=== PATIENT | male | born 1945 | race African-American/Black ===

== ENCOUNTER 2017-05-31 20:28 | Inpatient (IN) | payer MEDICARE, MEDICAID ==
[~2017-05-31] VITALS: Ht 172.7 cm; Wt 64.9 kg
[2017-05-31] MEDS ORDERED: TEMA15CA5 PO (21:12)
[2017-05-31] MEDS ORDERED: INSU100V10 SQ (21:12)
[2017-05-31] MEDS ORDERED: HYDR20VI6 IV (21:12)
[2017-05-31] MEDS ORDERED: RISP0.5T5 PO ×2 (21:12)
[2017-05-31] MEDS ORDERED: CLON0.1T14 PO (21:12)
[2017-05-31] MEDS ORDERED: ASPI81TA31 PO (21:12)
[2017-05-31] MEDS ORDERED: BLOO-360 IN (21:12)
[2017-05-31] MEDS ORDERED: LORA-258 PO (21:12)
[2017-05-31] MEDS ORDERED: ONDA4VIA30 IV (21:12)
[2017-05-31] MEDS ORDERED: ACET325T53 PO (21:12)
[2017-05-31] MEDS ORDERED: FAMO-132 PO (21:12)
[2017-05-31] MEDS ORDERED: DEXT50DI8 IV (21:12)
[2017-05-31] MEDS ORDERED: HYDR-3326 PO (21:12)
[2017-05-31 22:15] LABS: BASOPHILS % (AUTO) 0.5 % (0.0-2.0); EOSINOPHILS % (AUTO) 0.4 % (0.0-7.0); HEMATOCRIT 37.1 % (36.7-47.1); HEMOGLOBIN 12.4 g/dL (12.5-16.3); LYMPHOCYTES # (AUTO) 2.6 K/uL (20.0-40.0); MEAN CORPUSCULAR HEMOGLOBIN 32.2 uug (23.8-33.4); MEAN CORPUSCULAR HGB CONC 34 g/dL (32.5-36.3); MEAN CORPUSCULAR VOLUME 96.2 fL (73.0-96.2); MONOCYTES # (AUTO) 0.6 K/uL (2.0-10.0); MONOCYTES % (AUTO) 13.7 % (0.0-11.0); NEUTROPHILS # (AUTO) 1.4 K/uL (1.8-8.9); NEUTROPHILS % (AUTO) 29.4 % (38.5-71.5); PLATELET COUNT (AUTO) 93 K/uL (152-348); RED BLOOD CELL COUNT(AUTO) 3.85 MIL/uL (4.06-5.63); WHITE BLOOD COUNT (AUTO) 4.7 K/uL (3.6-10.2)
[2017-05-31 22:21] LABS: ALANINE AMINOTRANSFERASE 117 U/L (16-63); ALKALINE PHOSPHATASE 82 U/L (50-136); ASPARTATE AMINOTRANSFERASE 91 U/L (15-37); BILIRUBIN,DIRECT 0.3 mg/dL (0.0-0.2); BILIRUBIN,TOTAL 0.5 mg/dL (0.2-1.0); CARBON DIOXIDE 34 mmol/L (21-32); CHLORIDE 100 mmol/L (98-107); CREATININE 1.2 mg/dL (0.6-1.3); POTASSIUM 4.6 mmol/L (3.5-5.1); TOTAL PROTEIN, SERUM 7.5 g/dL (6.4-8.2); UREA NITROGEN, BLOOD 25 mg/dL (7-18)
[2017-05-31 22:24] LABS: ETHANOL < 3 MG/DL (0-0)
[2017-05-31 22:31] LABS: GLUCOSE 311 mg/dL (74-106)
[2017-05-31 22:55] LABS: LYMPHOCYTES % (MANUAL) 59 % (20-40); MONOCYTES % (MANUAL) 13 % (2-10); NEUTROPHILS % (MANUAL) 28 % (42-75)
[2017-05-31 22:56] LABS: THYROID STIMULATING HORMONE 1.177 mIU/mL (0.358-3.740)
[2017-05-31 23:40] VITALS: BP 159/96
[2017-06-01] MEDS ORDERED: CLONIDINE HCL 0.1 MG TABLET PO PRN
[2017-06-01] MEDS ORDERED: MAG HYDROX/AL HYDROX/SIMETH 30 ML LIQUID UDC PO PRN (00:30)
[2017-06-01] MEDS ORDERED: MAGNESIUM HYDROXIDE 30 ML LIQUID UDC PO PRN (00:30)
[2017-06-01 07:30] VITALS: BP 145/81
[2017-06-01] MEDS: FAMOTIDINE 20 MG TABLET PO SCH ×2 (08:21→17:02)
[2017-06-01] MEDS: NICOTINE 7 MG/24HR PATCH TD SCH (08:21)
[2017-06-01] MEDS: CLONAZEPAM 0.5 MG TABLET PO PRN (10:50)
[2017-06-01] MEDS: ASPIRIN 81 MG TAB.CHEW PO SCH (12:01)
[2017-06-01] MEDS: BENAZEPRIL HCL 5 MG TABLET PO SCH (13:05)
[2017-06-01] MEDS: glipiZIDE 5 MG TABLET PO SCH ×2 (13:05→17:02)
[2017-06-01] MEDS: METFORMIN HCL 500 MG TABLET PO SCH ×2 (13:05→17:03)
[2017-06-01 16:40] VITALS: BP 137/77
[2017-06-01] MEDS: BENZTROPINE MESYLATE 0.5 MG TABLET PO SCH (17:02)
[2017-06-01] MEDS: risperiDONE 0.5 MG TABLET PO SCH (17:02)
[2017-06-01 21:15] VITALS: BP 93/50
[2017-06-02] MEDS: TEMAZEPAM 7.5 MG CAPSULE PO PRN (01:31)
[2017-06-02] MEDS: ACETAMINOPHEN 325 MG TABLET PO PRN (01:32)
[2017-06-02 07:30] VITALS: BP 126/72
[2017-06-02] MEDS: METFORMIN HCL 500 MG TABLET PO SCH ×2 (08:41→17:04)
[2017-06-02] MEDS: BENZTROPINE MESYLATE 0.5 MG TABLET PO SCH ×2 (08:41→17:04)
[2017-06-02] MEDS: glipiZIDE 5 MG TABLET PO SCH ×2 (08:41→17:04)
[2017-06-02] MEDS: risperiDONE 0.5 MG TABLET PO SCH ×2 (08:41→17:04)
[2017-06-02] MEDS: FAMOTIDINE 20 MG TABLET PO SCH ×2 (08:41→17:04)
[2017-06-02] MEDS: NICOTINE 7 MG/24HR PATCH TD SCH (08:41)
[2017-06-02] MEDS: BENAZEPRIL HCL 5 MG TABLET PO SCH (08:42)
[2017-06-02] MEDS: ASPIRIN 81 MG TAB.CHEW PO SCH (08:42)
[2017-06-02 16:00] VITALS: BP 114/68
[2017-06-02 20:00] VITALS: BP 107/63
[2017-06-02] MEDS: CLONAZEPAM 0.5 MG TABLET PO PRN (23:35)
[2017-06-03] MEDS ORDERED: LORAZEPAM 2 MG/1 ML VIAL IM STA (00:44)
[2017-06-03] MEDS ORDERED: diphenhydrAMINE 50 MG/1 ML VIAL IM STA (00:44)
[2017-06-03] MEDS ORDERED: HALOPERIDOL LACTATE 5 MG/1 ML VIAL IM STA (00:44)
[2017-06-03] MEDS ORDERED: diphenhydrAMINE 50 MG/1 ML VIAL ONE (00:48)
[2017-06-03 07:30] VITALS: BP 127/72
[2017-06-03] MEDS: METFORMIN HCL 500 MG TABLET PO SCH ×2 (08:42→18:02)
[2017-06-03] MEDS: FAMOTIDINE 20 MG TABLET PO SCH ×2 (08:42→16:47)
[2017-06-03] MEDS: BENZTROPINE MESYLATE 0.5 MG TABLET PO SCH ×2 (08:42→16:47)
[2017-06-03] MEDS: ASPIRIN 81 MG TAB.CHEW PO SCH (08:42)
[2017-06-03] MEDS: risperiDONE 0.5 MG TABLET PO SCH ×2 (08:42→16:47)
[2017-06-03] MEDS: BENAZEPRIL HCL 5 MG TABLET PO SCH (08:43)
[2017-06-03] MEDS: glipiZIDE 5 MG TABLET PO SCH ×2 (08:47→16:46)
[2017-06-03] MEDS: NICOTINE 14 MG/24HR PATCH TD SCH (08:48)
[2017-06-03] MEDS ORDERED: NICOTINE 7 MG/24HR PATCH TD SCH (09:00)
[2017-06-03 15:55] VITALS: BP 94/57
[2017-06-03 19:47] VITALS: BP 97/62
[2017-06-03] MEDS: CLONAZEPAM 0.5 MG TABLET PO PRN (20:02)
[2017-06-03 20:04] VITALS: BP 110/64
[2017-06-03] MEDS ORDERED: DEXTROSE 50% 50 ML DISP.SYRIN IV PRN (23:00)
[2017-06-03] MEDS: BLOOD SUGAR DIAGNOSTIC 1 EACH STRIP VI SCH (23:00)
[2017-06-04] MEDS: TEMAZEPAM 7.5 MG CAPSULE PO PRN (00:45)
[2017-06-04] MEDS: BLOOD SUGAR DIAGNOSTIC 1 EACH STRIP VI SCH ×4 (06:31→20:23)
[2017-06-04 07:30] VITALS: BP 128/67
[2017-06-04] MEDS: NICOTINE 14 MG/24HR PATCH TD SCH ×2 (07:45→09:49)
[2017-06-04] MEDS: CLONAZEPAM 0.5 MG TABLET PO PRN ×2 (09:44→20:48)
[2017-06-04] MEDS: BENZTROPINE MESYLATE 0.5 MG TABLET PO SCH ×2 (09:44→17:24)
[2017-06-04] MEDS: METFORMIN HCL 500 MG TABLET PO SCH ×2 (09:44→17:25)
[2017-06-04] MEDS: risperiDONE 0.5 MG TABLET PO SCH ×2 (09:44→17:24)
[2017-06-04] MEDS: FAMOTIDINE 20 MG TABLET PO SCH ×2 (09:44→17:24)
[2017-06-04] MEDS: BENAZEPRIL HCL 5 MG TABLET PO SCH (09:44)
[2017-06-04] MEDS: glipiZIDE 5 MG TABLET PO SCH ×2 (09:44→16:30)
[2017-06-04] MEDS: ASPIRIN 81 MG TAB.CHEW PO SCH (09:45)
[2017-06-04] MEDS: INSULIN REGULAR, HUMAN 300 UNIT/3 ML VIAL SQ PRN ×3 (10:26→20:42)
[2017-06-04 15:43] VITALS: BP 115/76
[2017-06-04 20:27] VITALS: BP 107/67
[2017-06-05] MEDS: CLONAZEPAM 0.5 MG TABLET PO PRN (03:13)
[2017-06-05] MEDS: BLOOD SUGAR DIAGNOSTIC 1 EACH STRIP VI SCH ×4 (06:41→20:42)
[2017-06-05 07:30] VITALS: BP 132/75
[2017-06-05] MEDS: METFORMIN HCL 500 MG TABLET PO SCH ×2 (09:14→17:22)
[2017-06-05] MEDS: risperiDONE 0.5 MG TABLET PO SCH ×3 (09:14→17:22)
[2017-06-05] MEDS: glipiZIDE 5 MG TABLET PO SCH ×2 (09:14→17:22)
[2017-06-05] MEDS: ASPIRIN 81 MG TAB.CHEW PO SCH (09:14)
[2017-06-05] MEDS: NICOTINE 14 MG/24HR PATCH TD SCH (09:14)
[2017-06-05] MEDS: BENZTROPINE MESYLATE 0.5 MG TABLET PO SCH ×2 (09:14→17:22)
[2017-06-05] MEDS: BENAZEPRIL HCL 5 MG TABLET PO SCH (09:14)
[2017-06-05] MEDS: FAMOTIDINE 20 MG TABLET PO SCH ×2 (09:14→17:22)
[2017-06-05 15:15] VITALS: BP 108/66
[2017-06-05] MEDS: INSULIN REGULAR, HUMAN 300 UNIT/3 ML VIAL SQ PRN ×2 (17:24→22:12)
[2017-06-05 19:55] VITALS: BP 113/68
[2017-06-06] MEDS: INSULIN REGULAR, HUMAN 300 UNIT/3 ML VIAL SQ PRN ×4 (00:08→21:11)
[2017-06-06] MEDS: HYDROCODONE/APAP 5-325MG TABLET PO PRN (04:05)
[2017-06-06] MEDS: BLOOD SUGAR DIAGNOSTIC 1 EACH STRIP VI SCH ×4 (06:57→21:04)
[2017-06-06 07:30] VITALS: BP 90/56
[2017-06-06] MEDS: METFORMIN HCL 500 MG TABLET PO SCH ×2 (08:58→17:05)
[2017-06-06] MEDS: NICOTINE 14 MG/24HR PATCH TD SCH (08:58)
[2017-06-06] MEDS: BENZTROPINE MESYLATE 0.5 MG TABLET PO SCH ×2 (08:58→17:05)
[2017-06-06] MEDS: ASPIRIN 81 MG TAB.CHEW PO SCH (08:58)
[2017-06-06] MEDS: FAMOTIDINE 20 MG TABLET PO SCH ×2 (08:58→17:05)
[2017-06-06] MEDS: glipiZIDE 5 MG TABLET PO SCH ×2 (08:58→17:05)
[2017-06-06] MEDS: risperiDONE 0.5 MG TABLET PO SCH ×2 (08:58→13:24)
[2017-06-06] MEDS: BENAZEPRIL HCL 5 MG TABLET PO SCH (09:00)
[2017-06-06 16:23] VITALS: BP 106/67
[2017-06-06] MEDS ORDERED: risperiDONE 0.5 MG TABLET PO SCH (17:00)
[2017-06-06] MEDS: risperiDONE 1 MG TABLET PO SCH (17:05)
[2017-06-06 20:09] VITALS: BP 124/66
[2017-06-07 07:30] VITALS: BP 134/71
[2017-06-07] MEDS: BLOOD SUGAR DIAGNOSTIC 1 EACH STRIP VI SCH ×4 (07:45→20:10)
[2017-06-07] MEDS: glipiZIDE 5 MG TABLET PO SCH ×2 (08:14→17:43)
[2017-06-07] MEDS: risperiDONE 1 MG TABLET PO SCH ×2 (08:15→17:43)
[2017-06-07] MEDS: BENZTROPINE MESYLATE 0.5 MG TABLET PO SCH ×2 (08:15→17:43)
[2017-06-07] MEDS: ASPIRIN 81 MG TAB.CHEW PO SCH (08:15)
[2017-06-07] MEDS: BENAZEPRIL HCL 5 MG TABLET PO SCH (08:15)
[2017-06-07] MEDS: FAMOTIDINE 20 MG TABLET PO SCH ×2 (08:15→17:43)
[2017-06-07] MEDS: METFORMIN HCL 500 MG TABLET PO SCH ×2 (08:15→17:43)
[2017-06-07] MEDS: NICOTINE 14 MG/24HR PATCH TD SCH (08:18)
[2017-06-07] MEDS: INSULIN REGULAR, HUMAN 300 UNIT/3 ML VIAL SQ PRN ×3 (12:06→23:35)
[2017-06-07 16:31] VITALS: BP 125/69
[2017-06-07] MEDS: HYDROCODONE/APAP 5-325MG TABLET PO PRN (20:06)
[2017-06-07 20:12] VITALS: BP 141/77
[2017-06-08] MEDS: CLONAZEPAM 0.5 MG TABLET PO PRN (03:00)
[2017-06-08] MEDS: BLOOD SUGAR DIAGNOSTIC 1 EACH STRIP VI SCH ×4 (06:21→20:52)
[2017-06-08 07:30] VITALS: BP 123/87
[2017-06-08] MEDS: METFORMIN HCL 500 MG TABLET PO SCH ×2 (09:17→18:21)
[2017-06-08] MEDS: NICOTINE 14 MG/24HR PATCH TD SCH (09:17)
[2017-06-08] MEDS: glipiZIDE 5 MG TABLET PO SCH ×2 (09:17→18:21)
[2017-06-08] MEDS: INSULIN REGULAR, HUMAN 300 UNIT/3 ML VIAL SQ PRN ×3 (09:20→18:18)
[2017-06-08] MEDS: FAMOTIDINE 20 MG TABLET PO SCH ×2 (09:25→18:21)
[2017-06-08] MEDS: ASPIRIN 81 MG TAB.CHEW PO SCH (09:25)
[2017-06-08] MEDS: risperiDONE 1 MG TABLET PO SCH ×2 (09:25→18:21)
[2017-06-08] MEDS: BENAZEPRIL HCL 5 MG TABLET PO SCH (09:26)
[2017-06-08] MEDS: BENZTROPINE MESYLATE 0.5 MG TABLET PO SCH ×2 (09:26→18:21)
[2017-06-08] MEDS: HYDROCODONE/APAP 5-325MG TABLET PO PRN (15:02)
[2017-06-08 17:44] VITALS: BP 97/55
[2017-06-08 19:49] VITALS: BP 103/53
[2017-06-09 07:30] VITALS: BP 159/88
[2017-06-09] MEDS: BLOOD SUGAR DIAGNOSTIC 1 EACH STRIP VI SCH ×4 (07:34→20:33)
[2017-06-09] MEDS: NICOTINE 14 MG/24HR PATCH TD SCH (08:05)
[2017-06-09] MEDS: METFORMIN HCL 500 MG TABLET PO SCH ×2 (08:06→17:05)
[2017-06-09] MEDS: ASPIRIN 81 MG TAB.CHEW PO SCH (08:06)
[2017-06-09] MEDS: BENZTROPINE MESYLATE 0.5 MG TABLET PO SCH ×2 (08:06→17:05)
[2017-06-09] MEDS: BENAZEPRIL HCL 5 MG TABLET PO SCH (08:06)
[2017-06-09] MEDS: risperiDONE 1 MG TABLET PO SCH ×2 (08:06→17:05)
[2017-06-09] MEDS: glipiZIDE 5 MG TABLET PO SCH ×2 (08:06→17:05)
[2017-06-09] MEDS: FAMOTIDINE 20 MG TABLET PO SCH ×2 (09:51→17:05)
[2017-06-09 11:07] LABS: BASOPHILS % (AUTO) 0.4 % (0.0-2.0); EOSINOPHILS % (AUTO) 0.3 % (0.0-7.0); HEMATOCRIT 36.7 % (36.7-47.1); HEMOGLOBIN 12.5 g/dL (12.5-16.3); LYMPHOCYTES # (AUTO) 1.5 K/uL (20.0-40.0); LYMPHOCYTES % (AUTO) 48.1 % (20.5-51.5); MEAN CORPUSCULAR HGB CONC 34 g/dL (32.5-36.3); MEAN CORPUSCULAR VOLUME 94.2 fL (73.0-96.2); MONOCYTES # (AUTO) 0.5 K/uL (2.0-10.0); MONOCYTES % (AUTO) 14.7 % (0.0-11.0); NEUTROPHILS # (AUTO) 1.1 K/uL (1.8-8.9); NEUTROPHILS % (AUTO) 36.5 % (38.5-71.5); PLATELET COUNT (AUTO) 82 K/uL (152-348)
[2017-06-09 11:22] LABS: WHITE BLOOD COUNT (AUTO) 3.1 K/uL (3.6-10.2)
[2017-06-09 11:38] LABS: BILIRUBIN,TOTAL 0.6 mg/dL (0.2-1.0); CREATININE 0.9 mg/dL (0.6-1.3); MAGNESIUM 1.6 mg/dL (1.8-2.4); POTASSIUM 4.3 mmol/L (3.5-5.1); TOTAL PROTEIN, SERUM 7.5 g/dL (6.4-8.2)
[2017-06-09 12:36] LABS: LYMPHOCYTES % (MANUAL) 52 % (20-40); MONOCYTES % (MANUAL) 16 % (2-10); NEUTROPHILS % (MANUAL) 31 % (42-75)
[2017-06-09 12:48] LABS: REACTIVE LYMPHOCYTES 1 % (0-0)
[2017-06-09 16:15] VITALS: BP 112/61
[2017-06-09] MEDS: INSULIN REGULAR, HUMAN 300 UNIT/3 ML VIAL SQ PRN ×2 (16:41→20:50)
[2017-06-09 19:53] VITALS: BP 128/67
[2017-06-10 07:30] VITALS: BP 133/82
[2017-06-10] MEDS: NICOTINE 14 MG/24HR PATCH TD SCH (08:15)
[2017-06-10] MEDS: FAMOTIDINE 20 MG TABLET PO SCH ×2 (08:15→16:21)
[2017-06-10] MEDS: METFORMIN HCL 500 MG TABLET PO SCH ×2 (08:16→17:03)
[2017-06-10] MEDS: risperiDONE 1 MG TABLET PO SCH ×2 (08:16→16:21)
[2017-06-10] MEDS: BENZTROPINE MESYLATE 0.5 MG TABLET PO SCH ×2 (08:16→16:20)
[2017-06-10] MEDS: glipiZIDE 5 MG TABLET PO SCH ×2 (08:16→16:20)
[2017-06-10] MEDS: BENAZEPRIL HCL 5 MG TABLET PO SCH (08:16)
[2017-06-10] MEDS: ASPIRIN 81 MG TAB.CHEW PO SCH (08:16)
[2017-06-10] MEDS: BLOOD SUGAR DIAGNOSTIC 1 EACH STRIP VI SCH ×4 (08:22→20:46)
[2017-06-10] MEDS: INSULIN REGULAR, HUMAN 300 UNIT/3 ML VIAL SQ PRN ×2 (11:30→16:22)
[2017-06-10 15:58] VITALS: BP 132/66
[2017-06-10 20:00] VITALS: BP 128/84
[2017-06-11] MEDS: TEMAZEPAM 7.5 MG CAPSULE PO PRN (01:57)
[2017-06-11] MEDS: BLOOD SUGAR DIAGNOSTIC 1 EACH STRIP VI SCH ×4 (07:27→21:41)
[2017-06-11 07:30] VITALS: BP 127/70
[2017-06-11] MEDS: NICOTINE 14 MG/24HR PATCH TD SCH (08:24)
[2017-06-11] MEDS: FAMOTIDINE 20 MG TABLET PO SCH ×2 (08:25→16:32)
[2017-06-11] MEDS: risperiDONE 1 MG TABLET PO SCH ×2 (08:25→16:32)
[2017-06-11] MEDS: METFORMIN HCL 500 MG TABLET PO SCH ×2 (08:25→16:32)
[2017-06-11] MEDS: BENAZEPRIL HCL 5 MG TABLET PO SCH (08:25)
[2017-06-11] MEDS: ASPIRIN 81 MG TAB.CHEW PO SCH (08:26)
[2017-06-11] MEDS: CHOLECALCIFEROL 400 UNITS TABLET PO SCH (08:26)
[2017-06-11] MEDS: BENZTROPINE MESYLATE 0.5 MG TABLET PO SCH ×2 (08:26→17:02)
[2017-06-11] MEDS: glipiZIDE 5 MG TABLET PO SCH ×2 (08:26→16:32)
[2017-06-11] MEDS ORDERED: MAGNESIUM OXIDE 400 MG TABLET PO ONE (09:00)
[2017-06-11 15:33] VITALS: BP 143/83
[2017-06-11] MEDS: INSULIN REGULAR, HUMAN 300 UNIT/3 ML VIAL SQ PRN (16:36)
[2017-06-11 20:29] VITALS: BP 134/72
[2017-06-12] MEDS: glipiZIDE 5 MG TABLET PO SCH (07:30)
[2017-06-12] MEDS: BLOOD SUGAR DIAGNOSTIC 1 EACH STRIP VI SCH ×2 (07:36→11:07)
[2017-06-12] MEDS: NICOTINE 14 MG/24HR PATCH TD SCH (07:42)
[2017-06-12 08:00] VITALS: BP 130/79
[2017-06-12] MEDS: METFORMIN HCL 500 MG TABLET PO SCH (08:00)
[2017-06-12] MEDS: CHOLECALCIFEROL 400 UNITS TABLET PO SCH (09:14)
[2017-06-12 09:15] VITALS: BP 134/72
[2017-06-12] MEDS: FAMOTIDINE 20 MG TABLET PO SCH (09:15)
[2017-06-12] MEDS: BENZTROPINE MESYLATE 0.5 MG TABLET PO SCH (09:15)
[2017-06-12] MEDS: risperiDONE 1 MG TABLET PO SCH (09:15)
[2017-06-12] MEDS: BENAZEPRIL HCL 5 MG TABLET PO SCH (09:15)
[2017-06-12 14:05] LABS: *BILIRUBIN,URIN NEGATIVE (NEGATIVE); *BLOOD, URINE NEGATIVE (NEGATIVE); *CLARITY,URINE CLEAR (CLEAR); *COLOR,URINE YELLOW (YELLOW); *KETONES,URINE NEGATIVE (NEGATIVE); *PROTEIN,URINE TRACE (NEGATIVE); LEUKOCYTE ESTERASE ,URINE TRACE (NEGATIVE); NITRITE, URINE NEGATIVE (NEGATIVE); UGLUCOSE NEGATIVE (NEGATIVE)
[2017-06-12 14:06] LABS: BACTERIA,URINE NONE SEEN /HPF (NONE SEEN); SQUAMOUS EPITHELIAL CELL,UR FEW /HPF (NONE SEEN)
[2017-06-12] MEDS: ACETAMINOPHEN 325 MG TABLET PO PRN (14:45)
[2017-06-13 08:06] LABS: *IMMUNOGLOBULIN G, SERUM 1444 mg/dL (700-1600); IMMUNOGLOBULIN A, SERUM 1316 mg/dL (61-437); IMMUNOGLOBULIN M, SERUM 29 mg/dL (20-172)
[2017-06-13 14:07] LABS: A/G RATIO 0.8 (0.7-1.7); ALBUMIN 3.6 g/dL (2.9-4.4); ALPHA-1-GLOBULIN 0.2 g/dL (0.0-0.4); ALPHA-2-GLOBULIN 0.8 g/dL (0.4-1.0); BETA GLOBULIN 1.4 g/dL (0.7-1.3); GAMMA GLOBULIN 1.8 g/dL (0.4-1.8); GLOBULIN, TOTAL 4.3 g/dL (2.2-3.9); M-SPIKE Not Observed g/dL (Not Observed)
[2017-06-15 13:06] LABS: *HCV QUANT 2256050 IU/mL (.)
== END 2017-06-12 15:45 | DRG 885 ==
LOC: ER 20:33 → GPS 23:18
PROVIDERS: ADMIT Psychiatry & Neurology Psychiatry; ATTEND Internal Medicine
DX: F23 Brief psychotic disorder (principal); E43 Unspecified severe protein-calorie malnutrition; N17.0 Acute kidney failure with tubular necrosis; B19.20 Unspecified viral hepatitis C without hepatic coma; E11.65 Type 2 diabetes mellitus with hyperglycemia; D61.818 Other pancytopenia; Z59.0 Homelessness; Z79.4 Long term (current) use of insulin; K21.9 Gastro-esophageal reflux disease without esophagitis; Z68.21 Body mass index [BMI] 21.0-21.9, adult; E55.9 Vitamin D deficiency, unspecified; E83.42 Hypomagnesemia; Z91.14 Patient's other noncompliance with medication regimen; Z86.59 Personal history of other mental and behavioral disorders; I10 Essential (primary) hypertension; Z86.19 Personal history of other infectious and parasitic diseases; Z79.82 Long term (current) use of aspirin; Z79.899 Other long term (current) drug therapy
CPT/HCPCS: 36415; 71045; 71250; 76705; 82306; 82746; 82784; 83735; 84100; 84155; 84165; 84443; 85025; 86334; 87521; 93005; 97110; 97116; 97530; A4663; A9150; G0480; J1200; J1630; J1815; J2060